=== PATIENT | female | born 1975 | race African-American/Black ===

== ENCOUNTER 2023-01-23 04:26 | Day surgery (SDC) | payer OTHER ==
[2023-01-20 14:45] VITALS: BMI 32.3
[2023-01-23] MEDS ORDERED: EPINEPHrine 1:10,000 (P-F SYR) 1 MG/10 ML DISP.SYRIN SQ ONE (09:10)
[2023-01-23] MEDS ORDERED: EPINEPHrine 1:10,000 (P-F SYR) 1 MG/10 ML DISP.SYRIN ONE (09:37)
[2023-01-23 09:40] VITALS: TEMP 97.3
[2023-01-23 10:42] VITALS: BP 132/79; PULSE 60; RESP 15
== END 2023-01-23 10:45 | disposition home or self-care (01) ==
LOC: JASU-ENDO 04:26
PROVIDERS: ATTEND Internal Medicine Gastroenterology
PROC: 0DBM8ZX Excision of Descending Colon, Via Natural or Artificial Opening Endoscopic, Diagnostic (ICD-10-PCS; principal; 2023-01-23 08:45)
DX: Z12.11 Encounter for screening for malignant neoplasm of colon (principal); D12.4 Benign neoplasm of descending colon; K64.8 Other hemorrhoids
CPT/HCPCS: 81025; 82962; 88305-TC

== ENCOUNTER 2023-06-03 04:48 | Day surgery (SDC) | payer OTHER ==
[2023-05-28 13:54] VITALS: BMI 32.3
[2023-06-03 11:41] VITALS: BP 132/79; PULSE 56; RESP 16
[2023-06-03 12:02] VITALS: TEMP 98.5
== END 2023-06-03 12:03 | disposition home or self-care (01) ==
LOC: JASU-ENDO 04:48
PROVIDERS: ATTEND Internal Medicine Gastroenterology
PROC: 0DBM8ZX Excision of Descending Colon, Via Natural or Artificial Opening Endoscopic, Diagnostic (ICD-10-PCS; principal; 2023-06-03 12:45)
DX: Z12.11 Encounter for screening for malignant neoplasm of colon (principal); K64.8 Other hemorrhoids; K57.30 Diverticulosis of large intestine without perforation or abscess without bleeding; Z86.010 Personal history of colon polyps; I10 Essential (primary) hypertension; E11.9 Type 2 diabetes mellitus without complications; Z79.84 Long term (current) use of oral hypoglycemic drugs
CPT/HCPCS: 81025; 88305-TC

== ENCOUNTER 2024-07-06 04:22 | Day surgery (SDC) | payer OTHER ==
[2024-06-04 12:39] VITALS: BMI 29.6
[2024-07-06 11:07] VITALS: RESP 18
[2024-07-06 12:38] VITALS: TEMP 98.1
[2024-07-06 13:18] VITALS: BP 116/72; PULSE 64
== END 2024-07-06 13:19 | disposition home or self-care (01) ==
LOC: JASU-ENDO 04:22
PROVIDERS: ATTEND Internal Medicine Gastroenterology
PROC: 0DBL8ZX Excision of Transverse Colon, Via Natural or Artificial Opening Endoscopic, Diagnostic (ICD-10-PCS; 2024-07-06)
PROC: 0DBH8ZX Excision of Cecum, Via Natural or Artificial Opening Endoscopic, Diagnostic (ICD-10-PCS; principal; 2024-07-06 11:15)
DX: Z12.11 Encounter for screening for malignant neoplasm of colon (principal); K63.5 Polyp of colon; K63.3 Ulcer of intestine; K52.9 Noninfective gastroenteritis and colitis, unspecified; K64.8 Other hemorrhoids; Z86.010 Personal history of colon polyps
CPT/HCPCS: 81025; 82962; 88305-TC; 88342-TC

== ENCOUNTER 2024-10-04 07:47 | Day surgery (SDC) | payer OTHER ==
[2024-09-21 16:35] VITALS: BMI 29.7
[2024-10-04 08:51] VITALS: RESP 18
[2024-10-04] MEDS ORDERED: MIDAZOLAM HCL 2 MG/2 ML SINGLE DOSE VIAL ONE (10:39)
[2024-10-04 13:11] VITALS: TEMP 97.2
[2024-10-04 13:59] VITALS: BP 144/83; PULSE 62
== END 2024-10-04 13:59 | disposition home or self-care (01) ==
LOC: JASU-ENDO 07:47
PROVIDERS: ATTEND Internal Medicine Gastroenterology
PROC: 0DB58ZX Excision of Esophagus, Via Natural or Artificial Opening Endoscopic, Diagnostic (ICD-10-PCS; principal; 2024-10-04 10:00)
DX: R59.0 Localized enlarged lymph nodes (principal)
CPT/HCPCS: 82962; 88172; 88173